=== PATIENT | female | born 1965 | race Caucasian/White ===

== ENCOUNTER 2017-01-11 10:22 | Emergency (ER) | payer MEDICARE, MEDICAID ==
[~2017-01-11] VITALS: Ht 152.4 cm; Wt 90.7 kg
[~2017-01-11 10:22] MED LIST: ATENOLOL25 MG PO; BENTYL10 M1 PO; DICLOFENAC POTA50 MG PO; GLUCOPHAGE XR500 MG PO; INCRUSE ELLI62.5 MCG INH; INVOKANA300 MG PO; JANUVIA100 MG PO; JANUVIA50 MG PO; KLOR-CON M2020 MEQ PO; LASIX20 MG PO; LIPITOR40 MG PO; LYRICA200 MG PO; NORCO 325-5 MG1 TAB PO; NORVIR100 MG PO; PERCOCET 325-51 TAB PO; PREZISTA800 MG PO; PRILOSEC20 MG PO; PRINIVIL10 MG PO; PROAIR HFA8.5 GM INH; PROVENTIL2.5 MG/3 M INH; SENNA-S TABLET1 EACH PO; SINGULAIR10 MG PO; TRUVADA 200 MG1 EACH PO; ZOFRAN4 MG PO
[2017-07-29] MEDS ORDERED: DESCOVY 200-251 EACH PO (16:07)
[2017-07-29] MEDS ORDERED: LEXAPRO10 MG PO (16:09)
[2017-07-29] MEDS ORDERED: GUAIFENESIN ER600 MG PO (16:21)
[2017-07-29] MEDS ORDERED: LASIX40 MG PO (17:13)
[2017-07-29] MEDS ORDERED: FARXIGA10 MG PO (17:14)
[2017-07-29] MEDS ORDERED: GLUCOPHAGE XR500 MG PO (17:16)
[2017-07-29] MEDS ORDERED: ACTOS30 MG PO (17:16)
[2017-07-29] MEDS ORDERED: CEROVITE ADVANC1 TAB PO (17:17)
[2017-07-29] MEDS ORDERED: PRINIVIL10 MG PO (17:19)
[2017-07-29] MEDS ORDERED: DIFLUCAN150 MG PO (17:21)
== END 2017-01-11 12:05 | disposition short-term general hospital (02) ==
LOC: ER 10:22
DX: R55 Syncope and collapse (principal); R42 Dizziness and giddiness; B37.3 Candidiasis of vulva and vagina; F17.210 Nicotine dependence, cigarettes, uncomplicated; J44.9 Chronic obstructive pulmonary disease, unspecified; E11.9 Type 2 diabetes mellitus without complications; K21.9 Gastro-esophageal reflux disease without esophagitis; E78.5 Hyperlipidemia, unspecified; B20 Human immunodeficiency virus [HIV] disease; E66.9 Obesity, unspecified; G89.29 Other chronic pain; Z88.0 Allergy status to penicillin; Z88.6 Allergy status to analgesic agent; Z88.2 Allergy status to sulfonamides; Z88.8 Allergy status to other drugs, medicaments and biological substances; Z79.84 Long term (current) use of oral hypoglycemic drugs; Z79.899 Other long term (current) drug therapy; Z90.710 Acquired absence of both cervix and uterus; Z98.890 Other specified postprocedural states

== ENCOUNTER → 2017-01-29 | Outpatient (CLI) | payer MEDICARE, MEDICAID ==
[~2017-01-29] MED LIST changes: +ACTOS30 MG PO; +CEROVITE ADVANC1 TAB PO; +DESCOVY 200-251 EACH PO; +DIFLUCAN150 MG PO; +FARXIGA10 MG PO; +GUAIFENESIN ER600 MG PO; +LASIX40 MG PO; +LEXAPRO10 MG PO
== END | disposition short-term general hospital (02) ==
LOC: CLNEPH 12:45
DX: R80.9 Proteinuria, unspecified (principal); E11.9 Type 2 diabetes mellitus without complications; I25.10 Atherosclerotic heart disease of native coronary artery without angina pectoris; J44.9 Chronic obstructive pulmonary disease, unspecified